=== PATIENT | male | born 1990 | race Caucasian/White ===

== ENCOUNTER 2020-01-11 09:49 | Emergency (ER) | payer SELFPAY ==
--- NOTE | 2020-01-11 10:52 | RAD ---
Exam: XR Shoulder Rt 3 View STANDARD HISTORY: Right shoulder pain for one week. Numbness in right thumb. COMPARISON: None FINDINGS: Acromioclavicular and coracoclavicular distances are within normal limits. No acute fracture, dislocation, or other acute osseous abnormality is identified. IMPRESSION: No acute osseous abnormality is identified.
== END 2020-01-11 11:18 | disposition home or self-care (01) ==
LOC: ERS 09:49
DX: M25.511 Pain in right shoulder (principal); F17.290 Nicotine dependence, other tobacco product, uncomplicated